=== PATIENT | male | born 1945 ===

== ENCOUNTER 2019-10-03 08:21 | Outpatient (CLI) | payer BC ==
--- NOTE | 2019-10-03 10:03 | MRI ---
MRI BRAIN WITHOUT CONTRAST: HISTORY: Headaches, cervical stenosis, balance problems. COMPARISON: None. FINDINGS: No restricted diffusion is seen. There are foci of scattered T2 prolongation in the periventricular and subcortical white matter consistent with chronic small-vessel ischemic disease. The ventricular size is appropriate and the basilar cisterns are patent. No infarct, hemorrhage, midline shift, or a bnormal extraaxial fluid collections are seen. he visualized paranasal sinuses and mastoid air cells are well aerated. Here is cortical atrophy. IMPRESSION: 1. Cortical atrophy. 2. Chronic small-vessel ischemic disease. 3. No evidence of acute intracranial process;. POS: [facility]
--- NOTE | 2019-10-03 10:25 | MRI ---
MRI Cervical spine without contrast: HISTORY: Cervical stenosis, balance problems. Patient complains of right arm numbness and pain in neck. COMPARISON: 02/06/2010 FINDINGS: The craniocervical junction is unremarkable. No significant cord signal abnormality. Paravertebral soft tissues have a normal appearance and normal signal intensity. C1-2:No significant stenosis. C2-3: Mild central disc protrusion is present which results in mild effacement of the ventral subarac hnoid space. Facet hypertrophic changes are seen on the right resulting in mild right-sided neural foraminal narrowing. The left neural foramen is patent. C3-4: Loss of intervertebral disc height. Broad-based disc osteophyte complex is present with right p aracentral disc protrusion. Findings result in generalized narrowing of the central spinal canal. There is mass effect on the central and right anterolateral aspect of the spinal cord. Facet hypertro phic changes are seen at this level. Mild right and moderate left-sided neural foraminal narrowing is present. C4-5: Loss of intervertebral disc height. Broad-based disc osteophyte complex is present resulting in mild to moderate central canal narrowing with moderate to severe bilateral neural foraminal narrowing. C5-6: Loss of intervertebral disc height with mild endplate degenerative changes. Broad-based disc os teophyte complex is present resulting in generalized mild narrowing of the central spinal canal. There is effacement of the ventral subarachnoid space with slight flattening of the anterior aspect o f the spinal cord. The right neural foramen is patent, but moderate left-sided neural foraminal narrowing is present. C6-7: Loss of intervertebral disc height with endplate degenerative changes. A broad-based disc osteo phyte complex is present resulting in [id number]-lumidnif narrowing of the central spinal canal. There is mild flattening of the the anterior aspect of the spinal cord. Moderate to severe right and severe left-sided neural foraminal narrowing is present. C7-T1: Mild disc osteophyte complex is present which narrows the ventral subarachnoid space. There is no significant central canal narrowing. The neural foramina are patent. IMPRESSION: Multilevel degenerative changes with varying degrees of neural foraminal narrowing with moderate and severe degrees of neural foraminal narrowing present at multiple levels as described above. In addition, there is mild flattening of the anterior aspect of the spinal cord at several levels but gr eater at the C3-4 level secondary to disc osteophyte complex and right paracentral disc protrusion.
== END 2019-10-03 08:22 | disposition home or self-care (01) ==
LOC: TBSIIMAG 08:21
PROVIDERS: ATTEND Neurological Surgery
DX: M48.02 Spinal stenosis, cervical region (principal); R51 Headache; R26.89 Other abnormalities of gait and mobility; M47.812 Spondylosis without myelopathy or radiculopathy, cervical region; M25.78 Osteophyte, vertebrae; M50.21 Other cervical disc displacement, high cervical region; I67.89 Other cerebrovascular disease; G31.9 Degenerative disease of nervous system, unspecified
CPT/HCPCS: 70551; 72141